=== PATIENT | male | born 1985 | race Caucasian/White ===

== ENCOUNTER → 2017-12-09 | Outpatient (CLI) | payer SELFPAY ==
[2017-12-09 09:04] LABS: HEMATOCRIT 45.2 % (42.0-52.0); HEMOGLOBIN 15.6 g/dL (13.5-18.0); MEAN CELL VOLUME 91 fl (78-100); MEAN CORPUSCULAR HEMOGLOBIN 32 pg (27-31); MEAN CORPUSCULAR HGB CONC 35 g/dL (33-37); MEAN PLATELET VOLUME 10.2 fl (7.4-10.4); PLATELET COUNT 262 K/mm3 (130-400); RED BLOOD COUNT 4.96 M/mm3 (4.20-5.60); RED CELL DISTRIBUTION WIDTH 13.5 % (11.5-14.5); WHITE BLOOD COUNT 14.1 K/mm3 (4.8-10.8)
[2017-12-09 09:16] LABS: ALBUMIN 4.7 g/dL (3.5-5.0); BUN/CREATININE RATIO 15.4 (6.0-26.0); CALCIUM 9.6 mg/dL (8.4-10.2); POTASSIUM 3.3 mmol/L (3.6-5.0); TOTAL BILIRUBIN 0.8 mg/dL (0.2-1.3); TOTAL PROTEIN 8.6 g/dL (6.3-8.2)
[2017-12-09 14:36] LABS: EOS # 0.1 (0.04-0.40); EOS % 0.4 % (0.0-4.0); LYMPH# 2.6 (1.50-4.00); MONO # 1.1 (0.20-0.80); NEU # 9.9 (1.40-6.50)
== END ==
LOC: LAB 08:48
PROVIDERS: Family Medicine
DX: Z00.00 Encounter for general adult medical examination without abnormal findings (principal); D72.829 Elevated white blood cell count, unspecified